=== PATIENT | male | born 1940 | race Caucasian/White ===

== ENCOUNTER → 2016-06-12 16:52 | Outpatient (CLI) | payer MEDICARE, MEDICAID ==
[2016-06-12 19:56] LABS: BASOPHILS 0.6 % (0.0-2.0); EOSINOPHILS 7.4 % (0-7); HEMATOCRIT 38.4 % (42.0-54.0); HEMOGLOBIN 12.5 g/dL (13.5-17.5); IMMATURE GRANULOCYTES 0.1 % (0-5); LYMPHOCYTES 28.9 % (15-50); MCH 29.2 pg (26.0-34.0); MCHC 32.6 g/dL (31.0-37.0); MCV 89.7 fL (80.0-100.0); MEAN PLATELET VOLUME 12.5 fL (7.4-10.4); MONOCYTES 7.2 % (2-11); NEUTROPHILS 55.8 % (40-80); PLATELET COUNT 211 10x3/uL (130-400); RBC 4.28 10x6/uL (4.20-6.10); RDW 15.2 % (11.5-14.5); WBC 6.9 10x3/uL (4.8-10.8)
[2016-06-12 20:17] LABS: ALBUMIN 3.2 g/dL (3.4-5.0); ANION GAP 12.1 mmol/L (8-16); BILIRUBIN - TOTAL 0.26 mg/dL (0.2-1.3); CARBON DIOXIDE 31.6 mmol/L (21.0-32.0); CREATININE - SERUM 1.1 mg/dL (0.6-1.3); POTASSIUM - SERUM 4.7 mmol/L (3.5-5.1); PROTEIN - SERUM 7.3 g/dL (6.4-8.2)
[2016-06-12 20:21] LABS: CALCIUM 5.9 mg/dL (8.5-10.1)
== END | disposition home or self-care (01) ==
LOC: D.LABREF 16:52
PROVIDERS: Family Medicine
DX: E87.6 Hypokalemia (principal); I10 Essential (primary) hypertension

== ENCOUNTER 2016-06-13 11:06 | Emergency (ER) | payer MEDICARE, MEDICAID ==
[2016-06-13 12:11] LABS: BASOPHILS 0.6 % (0.0-2.0); EOSINOPHILS 6.4 % (0-7); HEMATOCRIT 36.8 % (42.0-54.0); HEMOGLOBIN 12.1 g/dL (13.5-17.5); IMMATURE GRANULOCYTES 0.1 % (0-5); LYMPHOCYTES 25.6 % (15-50); MCH 28.9 pg (26.0-34.0); MCHC 32.9 g/dL (31.0-37.0); MEAN PLATELET VOLUME 11.4 fL (7.4-10.4); MONOCYTES 6.2 % (2-11); NEUTROPHILS 61.1 % (40-80); PLATELET COUNT 205 10x3/uL (130-400); RBC 4.18 10x6/uL (4.20-6.10); WBC 6.8 10x3/uL (4.8-10.8)
[2016-06-13 12:38] LABS: ALBUMIN 3.1 g/dL (3.4-5.0); BILIRUBIN - TOTAL 0.27 mg/dL (0.2-1.3); CARBON DIOXIDE 29.6 mmol/L (21.0-32.0); CREATININE - SERUM 1.1 mg/dL (0.6-1.3); MAGNESIUM - SERUM 1.7 mg/dL (1.8-2.4); PHOSPHOROUS 4.2 mg/dL (2.5-4.9); PROTEIN - SERUM 7.6 g/dL (6.4-8.2)
[2016-06-13 12:41] LABS: ANION GAP 12.3 mmol/L (8-16); POTASSIUM - SERUM 3.9 mmol/L (3.5-5.1)
[2016-06-13 12:45] LABS: CALCIUM 6.2 mg/dL (8.5-10.1)
== END 2016-06-13 14:00 | disposition home or self-care (01) ==
LOC: D.ER 11:06
PROVIDERS: Emergency Medicine
DX: E83.51 Hypocalcemia (principal)

== ENCOUNTER → 2016-08-04 10:14 | Outpatient (CLI) | payer MEDICARE, MEDICAID ==
[2016-08-04 11:32] LABS: PHOSPHOROUS 4.3 mg/dL (2.5-4.9)
[2016-08-04 11:37] LABS: CALCIUM 6.3 mg/dL (8.5-10.1)
== END | disposition home or self-care (01) ==
LOC: D.LABREF 10:14
PROVIDERS: Internal Medicine Endocrinology, Diabetes & Metabolism
DX: E83.51 Hypocalcemia (principal)

== ENCOUNTER → 2016-08-07 10:55 | Outpatient (CLI) | payer MEDICARE, MEDICAID | END | disposition home or self-care (01) | LOC: D.LABREF 10:55 | DX: E83.51 Hypocalcemia (principal) ==

== ENCOUNTER → 2016-09-04 10:41 | Outpatient (CLI) | payer MEDICARE, MEDICAID | END | disposition home or self-care (01) | LOC: D.LABREF 10:41 | DX: E83.51 Hypocalcemia (principal) ==

== ENCOUNTER 2017-07-16 11:43 | Emergency (ER) | payer MEDICARE, MEDICAID | END 2017-07-16 21:05 | disposition home or self-care (01) | LOC: D.ER 11:43 | DX: S60.512A Abrasion of left hand, initial encounter (principal); S60.511A Abrasion of right hand, initial encounter; W19.XXXA Unspecified fall, initial encounter; Y93.89 Activity, other specified; Y92.019 Unspecified place in single-family (private) house as the place of occurrence of the external cause; S00.81XA Abrasion of other part of head, initial encounter; S01.81XA Laceration without foreign body of other part of head, initial encounter ==